=== PATIENT | female | born 1935 | race Caucasian/White ===

== ENCOUNTER 2020-09-29 21:28 | Inpatient (IN) | payer MEDICARE, OTHER ==
[~2020-09-29] VITALS: Ht 154.9 cm; Wt 50.8 kg
--- NOTE | 2020-09-29 22:43 | NUR ---
BETHANY PLACED SUGAR TONG SPLINT.
--- NOTE | 2020-09-29 22:47 | NUR ---
LAB IN ROOM TO COLLECT BLOOD
[2020-09-29 23:05] LABS: BASOPHILS 0.3 % (0-2); EOSINOPHILS 1.1 % (0-7); HEMATOCRIT 36.8 % (36.0-48.0); HEMOGLOBIN 12.3 g/dL (12-16); IMMATURE GRANULOCYTES 0.3 % (0-5); LYMPHOCYTE ABS# 1.95 10x3/uL (1.18-3.74); LYMPHOCYTES 16.3 % (15-50); MCH 32.5 pg (26.0-34.0); MCHC 33.4 g/dL (31.0-37.0); MCV 97.4 fL (80.0-100.0); MEAN PLATELET VOLUME 9.2 fL (7.4-10.4); MONOCYTES 9.8 % (2-11); NEUTROPHIL ABS# 8.61 10x3/uL (1.56-6.13); NEUTROPHILS 72.2 % (40-80); PLATELET COUNT 223 10x3/uL (130-400); RBC 3.78 10x6/uL (4.00-5.40); RDW 11.8 % (11.5-14.5); WBC 11.9 10x3/uL (4.8-10.8)
[2020-09-29 23:15] VITALS: BP 119/47
[2020-09-29 23:15] LABS: ANION GAP 11.7 mmol/L (8-16); CALCIUM 8.4 mg/dL (8.5-10.1); CARBON DIOXIDE 25.8 mmol/L (21.0-32.0); CREATININE - SERUM 1.1 mg/dL (0.6-1.3); POTASSIUM - SERUM 3.5 mmol/L (3.5-5.1)
[2020-09-29 23:16] LABS: APTT 28.8 SECONDS (22.8-39.4); INR 1.13 (0.85-1.17); PROTIME 13.4 SECONDS (11.6-15.0)
[2020-09-29 23:26] LABS: BILIRUBIN NEGATIVE (NEGATIVE); KETONE NEGATIVE (NEGATIVE); NITRITE NEGATIVE (NEGATIVE); UROBILINOGEN NORMAL mg/dL (< 2)
[2020-09-29 23:30] LABS: ALBUMIN 3.3 g/dL (3.4-5.0); BILIRUBIN - TOTAL 0.55 mg/dL (0.2-1.3); PROTEIN - SERUM 6.9 g/dL (6.4-8.2); THYROID STIMULATING HORMONE 1.72 uIU/mL (0.36-3.74)
[2020-09-30] VITALS: BP 117/51
[2020-09-30] MEDS ORDERED: METOPROLOL TART50 MG PO (00:31)
[2020-09-30] MEDS ORDERED: CELEXA40 MG PO (00:34)
[2020-09-30] MEDS ORDERED: OMEPRAZOLE40 MG PO (00:34)
[2020-09-30] MEDS ORDERED: DIOVAN80 MG PO (00:35)
[2020-09-30] MEDS ORDERED: LIPITOR20 MG PO (00:37)
[2020-09-30] MEDS ORDERED: MAG-OX 400 MG400 MG PO (00:38)
[2020-09-30] MEDS ORDERED: OMEGA-3100 MG PO (00:40)
[2020-09-30] MEDS ORDERED: ACIDOPHILUS-PE1 EACH PO (00:40)
[2020-09-30] MEDS ORDERED: VITAMIN D325 MC1 PO (00:40)
[2020-09-30] MEDS ORDERED: CITRACAL + D E1 EACH PO (00:41)
[2020-09-30] MEDS ORDERED: ASCORBIC ACID500 MG PO (00:41)
[2020-09-30 00:42] VITALS: BP 130/57; BMI 21.2
[2020-09-30] MEDS ORDERED: NIASPAN500 MG PO (00:42)
[2020-09-30] MEDS ORDERED: POTASSIUM99 M1 PO (00:42)
[2020-09-30] MEDS ORDERED: SUPER B COMPLE1 EAC1 PO (00:43)
[2020-09-30] MEDS ORDERED: [UNRECOGNIZED DRUG - OTHER] (00:44)
[2020-09-30] MEDS ORDERED: EYE HEALTH COMPLEX (00:45)
--- NOTE | 2020-09-30 01:06 | NUR ---
I have reviewed this patient and I concur with the Shift Assessment completed by the Licensed Practical Nurse today this shift.
[2020-09-30 04:00] VITALS: BP 122/53
[2020-09-30 07:35] LABS: BASOPHILS 0.2 % (0-2); EOSINOPHILS 1.8 % (0-7); HEMATOCRIT 37.7 % (36.0-48.0); HEMOGLOBIN 12.4 g/dL (12-16); IMMATURE GRANULOCYTES 0.1 % (0-5); LYMPHOCYTE ABS# 1.78 10x3/uL (1.18-3.74); LYMPHOCYTES 18.7 % (15-50); MCH 32.5 pg (26.0-34.0); MCHC 32.9 g/dL (31.0-37.0); MCV 98.7 fL (80.0-100.0); MEAN PLATELET VOLUME 9.4 fL (7.4-10.4); MONOCYTES 11.8 % (2-11); NEUTROPHIL ABS# 6.41 10x3/uL (1.56-6.13); NEUTROPHILS 67.4 % (40-80); PLATELET COUNT 198 10x3/uL (130-400); RBC 3.82 10x6/uL (4.00-5.40); RDW 11.9 % (11.5-14.5); WBC 9.5 10x3/uL (4.8-10.8)
[2020-09-30 08:06] LABS: ALBUMIN 3.2 g/dL (3.4-5.0); ANION GAP 14.2 mmol/L (8-16); BILIRUBIN - TOTAL 0.89 mg/dL (0.2-1.3); CALCIUM 8.3 mg/dL (8.5-10.1); CARBON DIOXIDE 24.5 mmol/L (21.0-32.0); MAGNESIUM - SERUM 1.7 mg/dL (1.8-2.4); PHOSPHOROUS 3.3 mg/dL (2.5-4.9); POTASSIUM - SERUM 3.7 mmol/L (3.5-5.1); PROTEIN - SERUM 6.7 g/dL (6.4-8.2)
--- NOTE | 2020-09-30 10:25 | NUR ---
PATIENT AWAKE AND ALERT, WAS ABLE TO EAT BREAKFAST WITHOUT DIFFICULTY WITH ASSISTANCE FROM HER DAUGHTER. PATIENT DENIES ANY PAIN AT THIS TIME. PATIENT ALERT AND ORIENTED X 4. SPLINT IN PLACE WITH GOOD PMS TO RIGHT ARM. NO DISTRESS NOTED. CALL MOTTA IN REACH, SIDE RAILS UP X 2, BED IN LOW POSITION. IV SITE DRY AND INTACT WITH NO S/S OF INFILTRATION. IV SALINE LOCKED AT THIS TIME.
[2020-09-30 13:34] VITALS: Ht 154.9 cm; Wt 50.8 kg
--- NOTE | 2020-09-30 15:21 | NUR ---
PATIENT RESTING QUIETLY AT THIS TIME, RESPIRATIONS EVEN AND UNLABORED. NO DISTRESS NOTED. FAMILY AT BEDSIDE. CALL MOTTA IN REACH, SIDE RAILS UP X 2, BED IN LOW POSITION.
[2020-09-30 15:25] VITALS: BP 148/62
[2020-09-30 18:35] VITALS: BP 140/58
[2020-09-30 20:00] VITALS: BP 137/66
[2020-10-01] VITALS: BP 134/69
[2020-10-01 04:00] VITALS: BP 118/57
--- NOTE | 2020-10-01 04:49 | NUR ---
PATIENT CONTINUED TO BE CONFUSED THIS SHIFT, PAIN WAS MANAGED WITH THE PRESCRIBED PAIN MEDICATION, SHE REFUSED SCD'S, AND REFUSED EXOS THUMB SPIKA SPLINT, SHE IS CURRENTLY RESTING IN BED WITH HER EYES CLOSED.
[2020-10-01 06:14] LABS: BASOPHILS 0.3 % (0-2); EOSINOPHILS 1.5 % (0-7); HEMATOCRIT 38.3 % (36.0-48.0); HEMOGLOBIN 12.6 g/dL (12-16); IMMATURE GRANULOCYTES 0.1 % (0-5); LYMPHOCYTE ABS# 1.97 10x3/uL (1.18-3.74); LYMPHOCYTES 19.9 % (15-50); MCH 32.6 pg (26.0-34.0); MCHC 32.9 g/dL (31.0-37.0); MEAN PLATELET VOLUME 9.8 fL (7.4-10.4); NEUTROPHIL ABS# 6.34 10x3/uL (1.56-6.13); NEUTROPHILS 64.2 % (40-80); PLATELET COUNT 213 10x3/uL (130-400); RBC 3.87 10x6/uL (4.00-5.40); RDW 12.1 % (11.5-14.5); WBC 9.9 10x3/uL (4.8-10.8)
[2020-10-01 06:28] LABS: ANION GAP 12.8 mmol/L (8-16); BILIRUBIN - TOTAL 1.14 mg/dL (0.2-1.3); CALCIUM 8.9 mg/dL (8.5-10.1); CARBON DIOXIDE 27.2 mmol/L (21.0-32.0); CREATININE - SERUM 0.8 mg/dL (0.6-1.3); PHOSPHOROUS 2.9 mg/dL (2.5-4.9); PROTEIN - SERUM 7.2 g/dL (6.4-8.2)
[2020-10-01 06:29] LABS: MAGNESIUM - SERUM 2.4 mg/dL (1.8-2.4)
[2020-10-01 08:50] VITALS: BP 131/57
--- NOTE | 2020-10-01 09:35 | NUR ---
PT STATES PAIN 5/10, MORPHINE GIVEN, GRANDAUGHTER AT BEDSIDE, MEDS GIVEN, PT AOX2-3, PT DOES NOT USE CALL LIGHT, BED ALARM IN PLACE
[2020-10-01 13:10] VITALS: BP 104/47
[2020-10-01] MEDS ORDERED: HYDROCODON-ACE1 EAC7 PO (13:29)
--- NOTE | 2020-10-01 14:44 | MORECARE ---
CASE MANAGEMENT DISCHARGE SUMMARY PATIENT: KAMERON SHAH UNIT: [id number] ADM DATE: 09/29/20 AGE: 85 : 35 SEX: F ROOM/BED: D.2232 AUTHOR: NEETU BENJAMIN PHYSICIAN: REFERRING PHYSICIAN: STEPHEN ACEVEDO MD DATE OF SERVICE: 10/01/20 Case Management Discharge Planning Summary DCP REVIEW SUMMARY ANTICIPATED D/C DATE: EXPECTED LOS : CASE STATUS: DCP Initiated INITIAL REVIEW: 09/29/2020 INITIAL REVIEWER: Fatuma Fagan FINAL DISCHARGE DISPOSITION: : FINAL REVIEWER: FINAL REVIEW DATE: LACE: UPDATED BY: [id number]: Bhavani Gross on 09/30/20 8:43 CT QUESTION: ANSWER Length of Stay (Prior Admit): None Acute Admission: Inpatient Emergency Room visits during previous 6 months: 0 Visits DCP Focus Questions & Answers DCP Screen QUESTION: ANSWER High Risk Factors: : Polypharmacy (greater than 10 meds) DCP Evaluation QUESTION: ANSWER Patient gives permission to discuss discharge plans with: (name, relationship and number) : DAUGHTER Patient's ability to cope with chronic illness : a. Adequate (0-3 ED visits in 6 mos., adequate financial resources, attends scheduled appts.) Patient and/or caregiver agree upon recommended discharge plan? : Yes Family / Caregiver's ability to cope with chronic illness: : a. Adequate (ability to meet patient's medical needs, ensures patient attends medical appts.) Patient's current cognitive status: : *Oriented to person, place, situation, time and present Physical Status: : Partial care dependence Does the patient have the ability to pay for or attain post discharge needs / services? : Yes Functional screen assessment: : New onset in weakness or paralysis Functional screen assessment: : New onset in difficulty in gait, balance, or transfer difficulties Family / Caregiver's ability to cope with chronic illness: : a. Adequate (ability to meet patient's medical needs, ensures patient attends medical appts.) Partial Dependence, assistance required for: : Bathing Is there a likelihood that the patient will require additional services to return to the preadmission environment? : Yes Functional screen comments: : WILL NEED REHAB Living Arrangements: : Home with others Other Equipment comments: : PLATFORM WALKER Results of this evaluation have been discussed with: : Children Patient with capacity for self-care or can be cared for in same environment as prior to hospitalization? : No Living arrangements comments: : LIVES WITH HER DAUGHTER Baseline cognitive status: : *Oriented to person, place, situation, time and present Physical environment modification needed / anticipated for discharge: : Yes Comments: : DC TO INPATIENT REHAB Physical environment referral comments (if applicable): : FAMILY LOOKING INTO A WALK IN SHOWER AND A RAMP Medication Management: : Patient states can read and understand medication labels Planned post hospital services available for patient? : Yes Pharmacy name(s): : [facility] Planned post hospital services covered by insurance plan? : Yes Does Patient have transportation to get home and to follow-up medical appointments when discharged from the hospital? : Yes Would patient like to participate in any Care Coordination programs (if applicable): : Not applicable Does the patient have electricity at home? : Yes Does the patient have running water in their house? : Yes Equipment in use: : Wheelchair Equipment in use: : Walker - Standard Equipment in use: : Bedside Commode Other Equipment comments: : DAUGHTER IS GOING TO ASK ABOUT RAMPS Mental health screen: : No mental health history Psychosocial status: : Unknown identity Abuse/Neglect: : None Resources / Services in place: : None Contact information for resources in use: : TRACEY ( DAUGHTER) [phone] XIN ( GRANDSON) [phone] [facility] Re-evaluation QUESTION: ANSWER Would patient like to participate in any Care Coordination programs (if applicable): : Not applicable PATIENT: KAMERON SHAH ENCOUNTER: [id number] MEDICAL RECORD#: [id number] ADMISSION DATE: 09/29/2020 DISCHARGE DATE: ATTENDING MD: STEPHEN BAE : AGE: 85 MARITAL STATUS: U DC PLAN ID: [id number] FACILITY: [facility] PRINTED ON: 10/01/20 14:44 CT All edits/amendments must be made on the electronic document DICTATION DATE: 10/01/201443 FLOORING PROFESSIONAL: MOSES 10/01/201443 RPT#: [id number] DC DATE: STATUS: ADM IN [facility] [address] [place] [address] END OF REPORT
--- NOTE | 2020-10-01 14:56 | MORECARE ---
CASE MANAGEMENT DISCHARGE SUMMARY PATIENT: KAMERON SHAH UNIT: [id number] ADM DATE: 09/29/20 AGE: 85 : 35 SEX: F ROOM/BED: D.2232 AUTHOR: NEETU BENJAMIN PHYSICIAN: REFERRING PHYSICIAN: STEPHEN ACEVEDO MD DATE OF SERVICE: 10/01/20 Case Management Discharge Planning Summary COMMENTS ENTERED DATE: 10/01/20 14:41 CT COMMENT TYPE: Discharge Planning REVIEWER: Fatuma Fagan CM met with patient & daughter Tracey, to complete initial dc planning assessment. CM educated patient on the CM role and verbal consent given by patient to complete assessment. Patient lives at home with her daughter where she is pretty independent with her care. Her daughter stated that they were going to look into a ramp at her home and turning the bathtub to a walk in shower. At discharge patient plans to return home and feels this is a safe discharge. CM discussed availability of home health, rehab services, and medical equipment. She is agreeable to inpatient rehab and feels like it will benefit her before she goes home. She has a walker x 2, a bsc, and a wheelchair at home. She is a patient of Dr Uriarte and uses the [facility] on [address]. TARSHA signed and IMM served and signed. Patient will be discharging down there today. Patient denied known discharge needs at this time. CM will continue to follow and will assist as needed with dc plans/needs. DCP REVIEW SUMMARY ANTICIPATED D/C DATE: EXPECTED LOS : CASE STATUS: DCP Initiated INITIAL REVIEW: 09/29/2020 INITIAL REVIEWER: Fatuma Fagan FINAL DISCHARGE DISPOSITION: : FINAL REVIEWER: FINAL REVIEW DATE: LACE: UPDATED BY: [id number]: Bhavani Gross on 09/30/20 8:43 CT QUESTION: ANSWER Length of Stay (Prior Admit): None Acute Admission: Inpatient Emergency Room visits during previous 6 months: 0 Visits DCP Focus Questions & Answers DCP Screen QUESTION: ANSWER High Risk Factors: : Polypharmacy (greater than 10 meds) DCP Evaluation QUESTION: ANSWER Patient gives permission to discuss discharge plans with: (name, relationship and number) : DAUGHTER Patient's ability to cope with chronic illness : a. Adequate (0-3 ED visits in 6 mos., adequate financial resources, attends scheduled appts.) Patient and/or caregiver agree upon recommended discharge plan? : Yes Family / Caregiver's ability to cope with chronic illness: : a. Adequate (ability to meet patient's medical needs, ensures patient attends medical appts.) Patient's current cognitive status: : *Oriented to person, place, situation, time and present Physical Status: : Partial care dependence Does the patient have the ability to pay for or attain post discharge needs / services? : Yes Functional screen assessment: : New onset in weakness or paralysis Functional screen assessment: : New onset in difficulty in gait, balance, or transfer difficulties Family / Caregiver's ability to cope with chronic illness: : a. Adequate (ability to meet patient's medical needs, ensures patient attends medical appts.) Partial Dependence, assistance required for: : Bathing Is there a likelihood that the patient will require additional services to return to the preadmission environment? : Yes Functional screen comments: : WILL NEED REHAB Living Arrangements: : Home with others Other Equipment comments: : PLATFORM WALKER Results of this evaluation have been discussed with: : Children Patient with capacity for self-care or can be cared for in same environment as prior to hospitalization? : No Living arrangements comments: : LIVES WITH HER DAUGHTER Baseline cognitive status: : *Oriented to person, place, situation, time and present Physical environment modification needed / anticipated for discharge: : Yes Comments: : DC TO INPATIENT REHAB Physical environment referral comments (if applicable): : FAMILY LOOKING INTO A WALK IN SHOWER AND A RAMP Medication Management: : Patient states can read and understand medication labels Planned post hospital services available for patient? : Yes Pharmacy name(s): : [facility] Planned post hospital services covered by insurance plan? : Yes Does Patient have transportation to get home and to follow-up medical appointments when discharged from the hospital? : Yes Would patient like to participate in any Care Coordination programs (if applicable): : Not applicable Does the patient have electricity at home? : Yes Does the patient have running water in their house? : Yes Equipment in use: : Wheelchair Equipment in use: : Walker - Standard Equipment in use: : Bedside Commode Other Equipment comments: : DAUGHTER IS GOING TO ASK ABOUT RAMPS Mental health screen: : No mental health history Psychosocial status: : Unknown identity Abuse/Neglect: : None Resources / Services in place: : None Contact information for resources in use: : TRACEY ( DAUGHTER) [phone] XIN ( GRANDSON) [phone] DCP Re-evaluation QUESTION: ANSWER Would patient like to participate in any Care Coordination programs (if applicable): : Not applicable PATIENT: KAMERON SHAH ENCOUNTER: [id number] MEDICAL RECORD#: [id number] ADMISSION DATE: 09/29/2020 DISCHARGE DATE: ATTENDING MD: STEHPEN BAE : AGE: 85 MARITAL STATUS: U DC PLAN ID: [id number] FACILITY: [facility] PRINTED ON: 10/01/20 14:56 CT All edits/amendments must be made on the electronic document DICTATION DATE: 10/01/201455 RESTAURANT KITCHEN MANAGER: MOSES 10/01/201455 RPT#: [id number] DC DATE: STATUS: ADM IN [facility] [address] [place] [address] END OF REPORT
[2020-10-01 17:09] VITALS: BP 104/58
--- NOTE | 2020-10-01 17:23 | NUR ---
CALLED [facility]PATIENT REHAB TO GIVE REPORT
--- NOTE | 2020-10-01 18:10 | NUR ---
DISCHARGE INSTRUCTOINS REVIEWED AND SIGNED WITH PT, ALL QUESTIONS ANSWERED, IV REMOVED, TIP INTACT, PT LEFT VIA WHEELCHAIR WITH STAFF TO REHAB, NO DISTRESS NOTED
--- NOTE | 2020-10-01 19:10 | MORECARE ---
CASE MANAGEMENT DISCHARGE SUMMARY PATIENT: KAMERON SHAH UNIT: [id number] ADM DATE: 09/29/20 AGE: 85 : 35 SEX: F ROOM/BED: D.2232 AUTHOR: NEETU BENJAMIN PHYSICIAN: REFERRING PHYSICIAN: STEPHEN ACEVEDO MD DATE OF SERVICE: 10/01/20 Case Management Discharge Planning Summary COMMENTS ENTERED DATE: 10/01/20 14:41 CT COMMENT TYPE: Discharge Planning REVIEWER: Fatuma Fagan CM met with patient & daughter Tracey, to complete initial dc planning assessment. CM educated patient on the CM role and verbal consent given by patient to complete assessment. Patient lives at home with her daughter where she is pretty independent with her care. Her daughter stated that they were going to look into a ramp at her home and turning the bathtub to a walk in shower. At discharge patient plans to return home and feels this is a safe discharge. CM discussed availability of home health, rehab services, and medical equipment. She is agreeable to inpatient rehab and feels like it will benefit her before she goes home. She has a walker x 2, a bsc, and a wheelchair at home. She is a patient of Dr Uriarte and uses the [facility] on [address]. TARSHA signed and IMM served and signed. Patient will be discharging down there today. Patient denied known discharge needs at this time. CM will continue to follow and will assist as needed with dc plans/needs. DCP REVIEW SUMMARY ANTICIPATED D/C DATE: EXPECTED LOS : CASE STATUS: DCP Initiated INITIAL REVIEW: 09/29/2020 INITIAL REVIEWER: Fatuma Fagan FINAL DISCHARGE DISPOSITION: : FINAL REVIEWER: FINAL REVIEW DATE: LACE: UPDATED BY: [id number]: Bhavani Gross on 09/30/20 8:43 CT QUESTION: ANSWER Length of Stay (Prior Admit): None Acute Admission: Inpatient Emergency Room visits during previous 6 months: 0 Visits DCP Focus Questions & Answers DCP Screen QUESTION: ANSWER High Risk Factors: : Polypharmacy (greater than 10 meds) DCP Evaluation QUESTION: ANSWER Patient gives permission to discuss discharge plans with: (name, relationship and number) : DAUGHTER Patient's ability to cope with chronic illness : a. Adequate (0-3 ED visits in 6 mos., adequate financial resources, attends scheduled appts.) Patient and/or caregiver agree upon recommended discharge plan? : Yes Family / Caregiver's ability to cope with chronic illness: : a. Adequate (ability to meet patient's medical needs, ensures patient attends medical appts.) Patient's current cognitive status: : *Oriented to person, place, situation, time and present Physical Status: : Partial care dependence Does the patient have the ability to pay for or attain post discharge needs / services? : Yes Functional screen assessment: : New onset in weakness or paralysis Functional screen assessment: : New onset in difficulty in gait, balance, or transfer difficulties Family / Caregiver's ability to cope with chronic illness: : a. Adequate (ability to meet patient's medical needs, ensures patient attends medical appts.) Partial Dependence, assistance required for: : Bathing Is there a likelihood that the patient will require additional services to return to the preadmission environment? : Yes Functional screen comments: : WILL NEED REHAB Living Arrangements: : Home with others Other Equipment comments: : PLATFORM WALKER Results of this evaluation have been discussed with: : Children Patient with capacity for self-care or can be cared for in same environment as prior to hospitalization? : No Living arrangements comments: : LIVES WITH HER DAUGHTER Baseline cognitive status: : *Oriented to person, place, situation, time and present Physical environment modification needed / anticipated for discharge: : Yes Comments: : DC TO INPATIENT REHAB Physical environment referral comments (if applicable): : FAMILY LOOKING INTO A WALK IN SHOWER AND A RAMP Medication Management: : Patient states can read and understand medication labels Planned post hospital services available for patient? : Yes Pharmacy name(s): : [facility] Planned post hospital services covered by insurance plan? : Yes Does Patient have transportation to get home and to follow-up medical appointments when discharged from the hospital? : Yes Would patient like to participate in any Care Coordination programs (if applicable): : Not applicable Does the patient have electricity at home? : Yes Does the patient have running water in their house? : Yes Equipment in use: : Wheelchair Equipment in use: : Walker - Standard Equipment in use: : Bedside Commode Other Equipment comments: : DAUGHTER IS GOING TO ASK ABOUT RAMPS Mental health screen: : No mental health history Psychosocial status: : Unknown identity Abuse/Neglect: : None Resources / Services in place: : None Contact information for resources in use: : TRACEY ( DAUGHTER) [phone] XIN ( GRANDSON) [phone] DCP Re-evaluation QUESTION: ANSWER Would patient like to participate in any Care Coordination programs (if applicable): : Not applicable PATIENT: KAMERON SHAH ENCOUNTER: [id number] MEDICAL RECORD#: [id number] ADMISSION DATE: 09/29/2020 DISCHARGE DATE: 10/01/2020 ATTENDING MD: STEPHEN BAE : AGE: 85 MARITAL STATUS: U DC PLAN ID: [id number] FACILITY: [facility] PRINTED ON: 10/01/20 19:10 CT All edits/amendments must be made on the electronic document DICTATION DATE: 10/01/201909 STRETCHER DRIER OPERATOR: MOSES 10/01/201909 RPT#: [id number] DC DATE:10/01/20 STATUS: DIS IN [facility] [address] [place] [address] END OF REPORT
--- NOTE | 2020-10-02 07:42 | MORECARE ---
CASE MANAGEMENT DISCHARGE SUMMARY PATIENT: KAMERON SHAH UNIT: [id number] ADM DATE: 09/29/20 AGE: 85 : 35 SEX: F ROOM/BED: D.2232 AUTHOR: NEETU BENJAMIN PHYSICIAN: REFERRING PHYSICIAN: STEPHEN ACEVEDO MD DATE OF SERVICE: 10/02/20 Case Management Discharge Planning Summary COMMENTS ENTERED DATE: 10/01/20 14:41 CT COMMENT TYPE: Discharge Planning REVIEWER: Fatuma Fagan CM met with patient & daughter Tracey, to complete initial dc planning assessment. CM educated patient on the CM role and verbal consent given by patient to complete assessment. Patient lives at home with her daughter where she is pretty independent with her care. Her daughter stated that they were going to look into a ramp at her home and turning the bathtub to a walk in shower. At discharge patient plans to return home and feels this is a safe discharge. CM discussed availability of home health, rehab services, and medical equipment. She is agreeable to inpatient rehab and feels like it will benefit her before she goes home. She has a walker x 2, a bsc, and a wheelchair at home. She is a patient of Dr Uriarte and uses the [facility] on [address]. TARSHA signed and IMM served and signed. Patient will be discharging down there today. Patient denied known discharge needs at this time. CM will continue to follow and will assist as needed with dc plans/needs. DCP REVIEW SUMMARY ANTICIPATED D/C DATE: EXPECTED LOS : CASE STATUS: DCP Initiated INITIAL REVIEW: 09/29/2020 INITIAL REVIEWER: Fatuma Fagan FINAL DISCHARGE DISPOSITION: : FINAL REVIEWER: FINAL REVIEW DATE: LACE: UPDATED BY: [id number]: Bhavani Gross on 09/30/20 8:43 CT QUESTION: ANSWER Length of Stay (Prior Admit): None Acute Admission: Inpatient Emergency Room visits during previous 6 months: 0 Visits DCP Focus Questions & Answers DCP Screen QUESTION: ANSWER High Risk Factors: : Polypharmacy (greater than 10 meds) DCP Evaluation QUESTION: ANSWER Patient gives permission to discuss discharge plans with: (name, relationship and number) : DAUGHTER Patient's ability to cope with chronic illness : a. Adequate (0-3 ED visits in 6 mos., adequate financial resources, attends scheduled appts.) Patient and/or caregiver agree upon recommended discharge plan? : Yes Family / Caregiver's ability to cope with chronic illness: : a. Adequate (ability to meet patient's medical needs, ensures patient attends medical appts.) Patient's current cognitive status: : *Oriented to person, place, situation, time and present Physical Status: : Partial care dependence Does the patient have the ability to pay for or attain post discharge needs / services? : Yes Functional screen assessment: : New onset in weakness or paralysis Functional screen assessment: : New onset in difficulty in gait, balance, or transfer difficulties Family / Caregiver's ability to cope with chronic illness: : a. Adequate (ability to meet patient's medical needs, ensures patient attends medical appts.) Partial Dependence, assistance required for: : Bathing Is there a likelihood that the patient will require additional services to return to the preadmission environment? : Yes Functional screen comments: : WILL NEED REHAB Living Arrangements: : Home with others Other Equipment comments: : PLATFORM WALKER Results of this evaluation have been discussed with: : Children Patient with capacity for self-care or can be cared for in same environment as prior to hospitalization? : No Living arrangements comments: : LIVES WITH HER DAUGHTER Baseline cognitive status: : *Oriented to person, place, situation, time and present Physical environment modification needed / anticipated for discharge: : Yes Comments: : DC TO INPATIENT REHAB Physical environment referral comments (if applicable): : FAMILY LOOKING INTO A WALK IN SHOWER AND A RAMP Medication Management: : Patient states can read and understand medication labels Planned post hospital services available for patient? : Yes Pharmacy name(s): : [facility] Planned post hospital services covered by insurance plan? : Yes Does Patient have transportation to get home and to follow-up medical appointments when discharged from the hospital? : Yes Would patient like to participate in any Care Coordination programs (if applicable): : Not applicable Does the patient have electricity at home? : Yes Does the patient have running water in their house? : Yes Equipment in use: : Wheelchair Equipment in use: : Walker - Standard Equipment in use: : Bedside Commode Other Equipment comments: : DAUGHTER IS GOING TO ASK ABOUT RAMPS Mental health screen: : No mental health history Psychosocial status: : Unknown identity Abuse/Neglect: : None Resources / Services in place: : None Contact information for resources in use: : TRACEY ( DAUGHTER) [phone] XIN ( GRANDSON) [phone] DCP Re-evaluation QUESTION: ANSWER Would patient like to participate in any Care Coordination programs (if applicable): : Not applicable PATIENT: KAMERON SHAH ENCOUNTER: [id number] MEDICAL RECORD#: [id number] ADMISSION DATE: 09/29/2020 DISCHARGE DATE: 10/01/2020 ATTENDING MD: STEPHEN BAE : AGE: 85 MARITAL STATUS: U DC PLAN ID: [id number] FACILITY: [facility] PRINTED ON: 10/02/20 7:42 CT All edits/amendments must be made on the electronic document DICTATION DATE: 10/02/20741 TICKET COLLECTOR OR USHER: MOSES 10/02/20741 RPT#: [id number] DC DATE:10/01/20 STATUS: DIS IN [facility] [address] [place] [address] END OF REPORT
== END 2020-10-01 18:30 | DRG 536 ==
LOC: D.ER 21:28 → D.MS 23:23
PROVIDERS: Family Medicine; ADMIT Family Medicine; ATTEND Family Medicine
DX: S32.501A Unspecified fracture of right pubis, initial encounter for closed fracture (principal); S52.511A Displaced fracture of right radial styloid process, initial encounter for closed fracture; W19.XXXA Unspecified fall, initial encounter; I10 Essential (primary) hypertension; E78.5 Hyperlipidemia, unspecified

== ENCOUNTER 2020-10-01 17:05 | Inpatient (IN) | payer MEDICARE, OTHER ==
[~2020-10-01] VITALS: Ht 154.9 cm; Wt 52.6 kg
[~2020-10-01 17:05] MED LIST: ACIDOPHILUS-PE1 EACH PO; ASCORBIC ACID500 MG PO; CELEXA40 MG PO; CITRACAL + D E1 EACH PO; DIOVAN80 MG PO; EYE HEALTH COMPLEX; HYDROCODON-ACE1 EAC7 PO; LIPITOR20 MG PO; MAG-OX 400 MG400 MG PO; METOPROLOL TART50 MG PO; NIASPAN500 MG PO; OMEGA-3100 MG PO; OMEPRAZOLE40 MG PO; POTASSIUM99 M1 PO; SUPER B COMPLE1 EAC1 PO; VITAMIN D325 MC1 PO; [UNRECOGNIZED DRUG - OTHER]
--- NOTE | 2020-10-01 20:24 | NUR ---
ADMIT TO PHYSICAL REHAB AND SERVICES OF DR PRITCHETT. ALERT AND SOME CONFUSION, DISORIENTED TO TIME PLACE TIME AND SITUATION. RESPIRAITONS UNLABORED. DX FRACTURED RIGHT ARM AND FRACTURED PELVIS. EDUCATION DONE ON NON WEIGHT-BEARING. REFUSES TO WEAR SPLING. CAN RECALL FALLING EPISODE THAT RESULTED IN INJURIES. NO ACUTE DISTRESS NOTED.
[2020-10-01 20:30] VITALS: BP 101/46; BMI 21.9
[2020-10-01 21:22] VITALS: BP 101/46
--- NOTE | 2020-10-02 02:27 | NUR ---
HAS MADE TWO ATTEMPTS NOW TO GET OUT OF BED AND SHE STATES SHE IS "TRYING TO GO TO HER BED." EXPLAINED TO PATIENT SHE IS IN HER BED AT HOSPITAL AND REMINDED TO NOT GET UP OUT OF BED WITHOUT CALLING FOR ASSISTANCE. SHE VOICES UNDERSTANDING. WILL MONITOR.
--- NOTE | 2020-10-02 05:26 | NUR ---
CONTINUES TO BE CONFUSED. CONTINUED TO GET OUT OF BED WITHOUT CALLING. ASSISTED TO RECLINER AND IS NOW SITTING AT NURSES STATION.
[2020-10-02 07:49] LABS: BASOPHILS 0.2 % (0-2); EOSINOPHILS 0.9 % (0-7); HEMATOCRIT 34.9 % (36.0-48.0); HEMOGLOBIN 11.8 g/dL (12-16); IMMATURE GRANULOCYTES 0.2 % (0-5); LYMPHOCYTE ABS# 1.86 10x3/uL (1.18-3.74); LYMPHOCYTES 19.3 % (15-50); MCH 32.7 pg (26.0-34.0); MCHC 33.8 g/dL (31.0-37.0); MEAN PLATELET VOLUME 9.6 fL (7.4-10.4); NEUTROPHILS 67.4 % (40-80); PLATELET COUNT 211 10x3/uL (130-400); RBC 3.61 10x6/uL (4.00-5.40); RDW 11.7 % (11.5-14.5); WBC 9.7 10x3/uL (4.8-10.8)
[2020-10-02 07:56] LABS: MCV 96.7 fL (80.0-100.0)
[2020-10-02 07:59] LABS: ANION GAP 13.1 mmol/L (8-16); CALCIUM 8.8 mg/dL (8.5-10.1); CARBON DIOXIDE 25.6 mmol/L (21.0-32.0); CREATININE - SERUM 0.9 mg/dL (0.6-1.3); POTASSIUM - SERUM 3.7 mmol/L (3.5-5.1)
[2020-10-02 11:25] VITALS: BP 132/40
[2020-10-02 14:45] VITALS: Ht 154.9 cm; Wt 52.6 kg
--- NOTE | 2020-10-02 16:52 | NUR ---
care team meeting: patient is new to unit and will be ra at next meting. will continue to follow with patient.
--- NOTE | 2020-10-02 19:06 | NUR ---
BEDSIDE REPORT COMPLETE. RECEIVED PT LYING IN BED. ALERT AND ORIENTED X3. DENIES ANY NEEDS OR PAIN. RIGHT ARM SPLINT INTACT. FAMILY AT BEDSIDE. ROGELIO AND BED ALARM ON. NO IV OR OXYGEN NOTED. CALL LIGHT AND WATER WITHIN REACH. FALL PRECAUTIONS IN PLACE. CPOC
[2020-10-02 21:27] VITALS: BP 149/52
--- NOTE | 2020-10-03 00:08 | NUR ---
PT LYING IN BED EYES CLOSED RESTING. RR EVEN AND UNLABORED. FAMILY AT BEDSIDE. CALL LIGHT WITHIN REACH. ROGELIO ALARM ON
--- NOTE | 2020-10-03 03:22 | NUR ---
PT LYING IN BED ON RIGHT SIDE EYES CLOSED RESTING. RR EVEN AND UNLABORED. CALL LIGHT WITHIN REACH.
--- NOTE | 2020-10-03 07:32 | NUR ---
PT RESTING IN BED WITH EYES OPEN CALL LIGHT IN REACH NO PROBLEMS WILL MONITER
[2020-10-03 08:10] VITALS: BP 131/57
--- NOTE | 2020-10-03 16:16 | NUR ---
SPOKE WITH PATIENTS GRANDSON REGARDING DISCHARGE PLANS, HE IS TRYING TO GET POA OF HIS MOTHER WHICH IS PATIENT DAUGHTER AND HE STATES THAT SHE HAS POA OVER THE PATIENT. AT DISCHARGE HE WOULD LIKE HIS GRANDMOTHER TO DISCHARGE TO A SKILLED FACILITY FOR REHAB AND THEN POSSIBLE CARE HOME CARE. HE HAS A LIST OF FACILITIES THAT HE IS GOING TO VISIT FOR HIS GRANDMOTHER. TOLD HIM ABOUT THE CARE TEAM MEETINGS ON WEDNESDAY AND HE WOULD LIKE TO ATTEND. WILL CONTINUE TO FOLLOW WITH PATIENT.
--- NOTE | 2020-10-03 18:40 | NUR ---
PT RESTING IN BED WITH EYES OPEN CALL LIGHT IN REACH WILL MONITER
--- NOTE | 2020-10-03 18:50 | NUR ---
BEDSIDE REPORT COMPLETE. RECEIVED PT LYING IN BED AWAKE. ALERT AND ORIENTED X3. DENIES ANY NEEDS OR PAIN. NO DISTRESS NOTED. RIGHT WRIST SPLINT INTACT. CALL LIGHT WITHIN REACH. FALL PRECAUTIONS IN PLACE. CPOC
[2020-10-03 19:54] VITALS: BP 138/55
--- NOTE | 2020-10-04 06:40 | NUR ---
PT LYING IN BED RESTING. NO DISTRESS NOTED. CALL LIGHT WITHIN REACH. ROGELIO ALARM ON
[2020-10-04 07:16] LABS: ANION GAP 12.8 mmol/L (8-16); CALCIUM 8.7 mg/dL (8.5-10.1); CARBON DIOXIDE 26.1 mmol/L (21.0-32.0); POTASSIUM - SERUM 3.9 mmol/L (3.5-5.1)
[2020-10-04 07:18] LABS: BASOPHILS 0.3 % (0-2); EOSINOPHILS 3.3 % (0-7); HEMATOCRIT 35.4 % (36.0-48.0); HEMOGLOBIN 11.8 g/dL (12-16); IMMATURE GRANULOCYTES 0.3 % (0-5); LYMPHOCYTE ABS# 2.75 10x3/uL (1.18-3.74); LYMPHOCYTES 29.9 % (15-50); MCH 32.3 pg (26.0-34.0); MCHC 33.3 g/dL (31.0-37.0); MEAN PLATELET VOLUME 9.8 fL (7.4-10.4); MONOCYTES 11.9 % (2-11); NEUTROPHILS 54.3 % (40-80); RBC 3.65 10x6/uL (4.00-5.40); RDW 11.9 % (11.5-14.5); WBC 9.2 10x3/uL (4.8-10.8)
[2020-10-04 07:29] LABS: PLATELET COUNT 303 10x3/uL (130-400)
[2020-10-04 08:00] VITALS: BP 175/74
--- NOTE | 2020-10-04 08:30 | NUR ---
SITTING UP IN BED FOR BREAKFAST. DENIES NEEDS.
--- NOTE | 2020-10-04 19:30 | NUR ---
AWAKE AND ALERT. RESTING IN BED AFTER GOING TO BATHROOM. RESPIRAITONS UNLABORED. CONFUSED AT TIMES. NO ACUTE DISTRESS NOTED. CALL LIGHT IN REACH.
[2020-10-04 20:18] VITALS: BP 147/61
--- NOTE | 2020-10-05 05:13 | NUR ---
QUIET HOURS. UP TO BATHROOM SEVERAL TIMES. NOW SLEEPING WITH NO DISTRESS NOTED.
--- NOTE | 2020-10-05 08:00 | NUR ---
SHIFT ASSMT COMPLETED.ASSISTED TO BATHROOM AND UP TO WC.CL IN REACH.BREAKFAST GIVEN.
[2020-10-05 09:32] VITALS: BP 149/60
--- NOTE | 2020-10-05 12:00 | NUR ---
SITTING UP IN WC EATING LUNCH.
[2020-10-05 19:12] VITALS: BP 132/60
--- NOTE | 2020-10-05 19:20 | NUR ---
AWAKE AND ALERT. ASSISTED TO BATHROOM. C/O PAIN AND TINGLING IN RIGHT HAND AND THUMB. SPLINT IN PLACE BUT IS NOT TOO TIGHT. HAND WARM AND RADIAL PULSE POSITIVE. RESPIRATIONS UNLABORED.
--- NOTE | 2020-10-06 05:20 | NUR ---
QUIET HOURS. NO ACUTE CHANGES IN CONDITION THIS SHIFT. RESTING IN BED WITH NO DISTRESS NOTED.
[2020-10-06 08:00] VITALS: BP 139/57
--- NOTE | 2020-10-06 08:00 | NUR ---
SHIFT ASSMT COMPLETED.
--- NOTE | 2020-10-06 12:00 | NUR ---
UP OOB FOR LUNCH.
[2020-10-06 19:00] VITALS: BP 139/48
--- NOTE | 2020-10-06 19:36 | NUR ---
AWAKE AND ALERT WITH NOTED CONFUSION. DISORIENTED TO SITUATION AND TIME. RESPIRATIONS UNLABORED. SPLINT INTACT TO RIGHT ARM. NO ACUTE DISTRESS NOTED.
--- NOTE | 2020-10-07 05:26 | NUR ---
RESTING IN BED. RESPIRATIONS UNLABORED. C/O PAIN IN RIGHT HIP AREA. WILL MEDICATED WITH PAIN MEDICATION. SEE MAR. CALL LIGHT IN REACH.
[2020-10-07 07:05] LABS: BASOPHILS 0.4 % (0-2); EOSINOPHILS 2.3 % (0-7); HEMOGLOBIN 11.6 g/dL (12-16); IMMATURE GRANULOCYTES 0.2 % (0-5); LYMPHOCYTE ABS# 2.15 10x3/uL (1.18-3.74); LYMPHOCYTES 22.7 % (15-50); MCHC 33.1 g/dL (31.0-37.0); MCV 96.7 fL (80.0-100.0); MEAN PLATELET VOLUME 9.2 fL (7.4-10.4); MONOCYTES 9.6 % (2-11); NEUTROPHIL ABS# 6.13 10x3/uL (1.56-6.13); NEUTROPHILS 64.8 % (40-80); PLATELET COUNT 331 10x3/uL (130-400); RBC 3.62 10x6/uL (4.00-5.40); WBC 9.5 10x3/uL (4.8-10.8)
[2020-10-07 07:21] LABS: ANION GAP 12.9 mmol/L (8-16); CALCIUM 8.9 mg/dL (8.5-10.1); CARBON DIOXIDE 27.4 mmol/L (21.0-32.0); POTASSIUM - SERUM 4.3 mmol/L (3.5-5.1)
[2020-10-07 08:09] VITALS: BP 150/62
--- NOTE | 2020-10-07 13:05 | NUR ---
NUTRITION FOLLOW UP: COMMENTS: Patient out of room during visit this AM and no family in the room. Patient ate 50% of breakfast this morning. Patient with no complaints per MD note this morning. Added Ensure with meals due to low PO intake. DIET: Regular Diet SUPPLEMENT: Ensure with Meals PO INTAKE: 40% avg for last 10 meals WEIGHT: 09/30-112 lbs; 10/02-116 lbs SKIN: No PU or Chronic Wounds BM: x 1 on 10/06 SIG MEDS: KGluconate, Niacin, MVI, MagOx, Fish Oil, Vit D, OSCAL, Lipitor, Protonix, Probiotic SIG LABS: Na-134(L) RECOMMENDATIONS: -Continue Regular Diet -Continue Ensure with meals as tolerated -Encourage PO intake -Assitance with meals if needed RD to follow up within 7 days
--- NOTE | 2020-10-07 19:33 | NUR ---
PT IN BED WATCHING TV, TOILETED, NO OTHER NEEDS NOTED, FLUIDS/CL WITHIN REACH
[2020-10-07 21:44] VITALS: BP 149/56
--- NOTE | 2020-10-08 07:23 | NUR ---
PT RESTING IN BED WITH EYES OPEN CALL LIGHT IN REACH WILL MONITER
[2020-10-08 08:00] VITALS: BP 155/65
--- NOTE | 2020-10-08 18:35 | NUR ---
PT RESTING IN BED WITH EYES OPEN CALL LIGHT IN REACH NO PROBLEMS WILL MONITER
[2020-10-08 19:00] VITALS: BP 138/55
--- NOTE | 2020-10-09 01:39 | NUR ---
PT RESTING WITH EYES CLOSED. RESPIRATIONS EVEN AND UNLABORED. HER BED ALARM IS ON, BED IS LOW AND CALL LIGHT IS WITHIN REACH.
[2020-10-09 07:54] VITALS: BP 145/49
--- NOTE | 2020-10-09 08:54 | NUR ---
PATIENT SITTING UP AT BEDSIDE TO EAT BREAKFAST. ALERT/ORIENT. CHAIR ALARM ON. CALL LIGHT WITHIN REACH. VOICES NO NEEDS. WILL CONTINUE WITH PLAN OF CARE
--- NOTE | 2020-10-09 13:00 | NUR ---
I have reviewed this patient and I concur with the Shift Assessment completed by the Licensed Practical Nurse today this shift.
--- NOTE | 2020-10-09 15:31 | NUR ---
PATIENT HELPED TO BATHROOM. MODERATE ASST OF ONE PERSON FROM BED TO WHEELCHAIR
--- NOTE | 2020-10-09 16:30 | NUR ---
CARE TEAM MEETING: PATIENT IS DOING WELL IN THERAPY. HER DAUGHTER ATTENDED THE MEETING. SHE WOULD LIKE A REFERRAL TO THE [facility] FOR MORE IN PATIENT THERAPY. WILL MAKE THE REFERRAL FOR POSSIBLE ADMISSION. WILL CONTINUE TO FOLLOW WITH PATIENT.
[2020-10-09 21:29] VITALS: BP 149/62
--- NOTE | 2020-10-10 02:40 | NUR ---
PT YELLING FOR HELP. WENT INTO HER ROOM AND HER CALL LIGHT HAD FALLEN ON THE FLOOR. SHE STATED SHE NEEDED TO PEE. SHE STARTED VOIDING BEFORE WE WERE ABLE TO GET HER IN THE WHEELCHAIR. SHE WAS VERY STIFF AND HAD TROUBLE TRANSFERRING FROM THE BED TO WHEELCHAIR DUE TO PAIN TO HER LOWER BACK. ASSISTED TO RESTROOM WHERE SHE VOIDED AND THEN ASSISTED BACK TO BED. COMPLETE LINEN CHANGE COMPLETED. NORCO GIVEN PER PRN ORDER. HER BED IS LOW, BED ALARM ON AND CALL LIGHT IS WITHIN REACH. FRESH ICE WATER GIVEN. SHE DENIES FURTHER NEEDS.
[2020-10-10 07:49] VITALS: BP 164/86
--- NOTE | 2020-10-10 08:13 | NUR ---
SHE IS WORKING WITH OT. PRN FOR PAIN GIVEN. SHE TOOK HER MEDICATIONS WITHOUT ANY PROBLEMS. SHE HAS A BRUISE ON HER RIGHT HIP, A BRACE TO HER RIGHT WRIST.
--- NOTE | 2020-10-10 19:00 | RHP ---
PATIENT: KAMERON SHAH MEDICAL RECORD: [id number] ACCOUNT: [id number] LOCATION:[facility] [id number] : 35 ADMISSION DATE: 10/01/20 REHABILITATION HISTORY AND PHYSICAL EXAMINATION POST ADMISSION PHYSICIAN EXAMINATION POST ADMISSION PHYSICAL EXAMINATION AND HISTORY AND PHYSICAL DATE OF ADMISSION: 10/01/2020. ADMITTING DIAGNOSIS: Pubic ramus fracture. HISTORY OF PRESENT ILLNESS: The patient is an 85-year-old female patient who fell backwards landing on her hip and her right arm while walking up some steps on 09/29/2020. She denied loss of consciousness. She was admitted to ortho, Dr. Reynoso for pain control. She reported no mobility issues prior to this incident. The patient had an orthopedic surgery consult. It is nonoperative treatment for a right distal radial fracture, which will need a thumb spica splint and a pubic ramus fracture, which she does have to use with a platform walker. She will need to be followed by ortho after discharge. Prior to that, she lived at home with her daughter and she was pretty independent with her care. Daughter stated that she was going to look into a ramp at her home and turning the bathtub to a walk-in shower. At discharge, she plans to return home. She is a patient of Dr. Miller. She is currently weightbearing as tolerated on lower extremity, weightbearing as tolerated for elbow and use of a platform walker. She requires constant cueing not to use her right upper extremity. She is right-hand dominant. She has been working on the thumb spica splint. The thumb space is too small to get the splint positioned exactly where it needs to be. They are working on this at this time. She is mid to mod assist for ADLs, mod to max assist with ambulation. During her rehabilitation stay, we will continue to monitor closely for lab values or cognition, medication adjustments, pain control, decreased activity tolerance, decreased strength, balance deficits and gait disturbance and impaired mobility. She has some dyspnea on exertion. She is a high fall risk and self-care deficits. These are all barriers to her discharge home. Comorbidities include confusion, decreased mobility, falls, hyperlipidemia, hypertension, safety problems, and osteoarthritis. PAST MEDICAL HISTORY: Significant for hyperlipidemia. She has got a history of some musculoskeletal pain. PAST SURGICAL HISTORY: Includes gallbladder surgery, , appendectomy. ALLERGIES: No known drug allergies. MEDICATIONS: Niaspan 500 mg daily, Mag-Ox 200 mg daily, omega-3 one cap daily, beta carotene daily, valsartan 80 mg daily, potassium 99 mg daily. She is on a vitamin Stresstabs. She is on citalopram 40 mg daily, vitamin D 1000 units daily. She is on atorvastatin 20 mg daily, ascorbic acid 1000 mg daily, Protonix 40 mg daily, lactobacillus, Lopressor 100 mg b.i.d., and [place] 5/325 for pain. HABITS: No alcohol or tobacco use. FAMILY HISTORY: Noncontributory. HISTORY AND PHYSICAL [id number] POSTLEWATE,KAMERON SOCIAL HISTORY: The patient wants to return back home and get back to her prior level of functioning. REVIEW OF SYSTEMS: GENERAL: Does complain of weakness and fatigue. HEENT: Denies cold, cough, or congestion. CARDIOVASCULAR: Denies any chest pain. OBJECTIVE: VITAL SIGNS: Stable, afebrile. GENERAL: Elderly female in no acute distress. Normal exam. HEENT: Normocephalic and atraumatic. Mucosa moist. NECK: Supple. No lymphadenopathy. LUNGS: Clear in upper rubio. No wheezes or rales. HEART: Regular rate and rhythm. No murmurs, rubs, or gallops. ABDOMEN: Soft, benign, nondistended. Positive bowel sounds times 4. EXTREMITIES: She does have her hand in a soft Velcro brace at this time. NEUROLOGIC: She is intact, minimally, but she does have some diffuse weakness. Her white count is 9.7, H and H of 12 and 35 and platelet count is noted to be 211. Sodium 133, potassium 3.7, BUN and creatinine of 16 and 0.9 and blood sugar is noted to be 115. ASSESSMENT: This is an 85-year-old female patient admitted to rehab with a working diagnosis of a pubic ramus fracture along with a distal radius fracture. The patient has potential to make improvement. We instituted the following multidisciplinary therapies including, not limited to physical, occupational, respiratory, speech, nutritional services, prosthetics and orthotics. Given her complex medical condition and risks for more complications rehabilitation services cannot be provided at a low level of care such as jail facility. PLAN: 1. Admit to [facility] for inpatient therapy to include the following disciplines; A. Physical therapy to improve gait, all transfer skills and bed mobility to a modified independent level. B. Occupational therapy to improve activities of daily living. C. Case management to help with discharge planning and placement options. D. Nutrition to assist with nutritional needs. E. Rehabilitation nursing to assist in monitoring the patient's underlying medical condition and to assist with any type of bowel or bladder management. 2. The patient's current medications and Medicare will be continued. 3. Placed on standard fall precautions. 4. The patient's stay is approximately 7-10 days. 5. We discussed this patient during care team staff meeting this week. Continuation of appropriate home medications and I will discuss her case today with her care team. TRANSINT:[id number] Voice Confirmation ID: [id number] DOCUMENT ID: [id number] KANNAN notes whether there has been none or any medical/functional change since admission: HISTORY AND PHYSICAL [id number] POSTLEWATE,KAMERON - No change since preadmission screen. KANNAN attests patient continues to be appropriate for IRF: - Continues to be appropriate. GEORGE PRITCHETT MD at 1900 CC: [id number] DICTATION DATE: 10/02/20 09 YARD JACKER: 10/02/20 1112 ADM IN [facility] [address] [place] [address]
[2020-10-10 21:49] VITALS: BP 148/49
[2020-10-11 07:49] LABS: BASOPHILS 0.2 % (0-2); IMMATURE GRANULOCYTES 0.4 % (0-5); LYMPHOCYTE ABS# 2.34 10x3/uL (1.18-3.74); LYMPHOCYTES 13.9 % (15-50); MCH 32.8 pg (26.0-34.0); MCHC 34.2 g/dL (31.0-37.0); MEAN PLATELET VOLUME 9.4 fL (7.4-10.4); MONOCYTES 9.6 % (2-11); NEUTROPHIL ABS# 12.61 10x3/uL (1.56-6.13); NEUTROPHILS 74.9 % (40-80); RBC 3.96 10x6/uL (4.00-5.40); WBC 16.8 10x3/uL (4.8-10.8)
[2020-10-11 07:54] LABS: PLATELET COUNT 400 10x3/uL (130-400)
[2020-10-11 08:00] LABS: ANION GAP 15.1 mmol/L (8-16); CALCIUM 9.5 mg/dL (8.5-10.1); CARBON DIOXIDE 26.9 mmol/L (21.0-32.0); CREATININE - SERUM 1.1 mg/dL (0.6-1.3)
[2020-10-11 08:20] VITALS: BP 143/65
--- NOTE | 2020-10-11 09:15 | NUR ---
SHE IS C/O LOWER BACK PAIN, DR. YARELY LOPEZ, NEW ORDERS FOR A PATCH. SHE HAS BRUISING TO THE INNER AND OUTER THIGH. THE CALL LIGHT IS WITHIN REACH AND THE BED ALARM IS ON.
--- NOTE | 2020-10-11 13:25 | NUR ---
NUTRITION FOLLOW UP: COMMENTS: Patient asleep in bed during visit. No family members in the room. Did not distrub patient. Patient present with okay PO intake. DIET: Regular Diet SUPPLEMENT: Ensure with Meals PO INTAKE: 47% avg for last 9 meals WEIGHT: 10/04-116 lbs BM: x 1 on 10/10 SIG MEDS: K Gluconate, Niacin, MVI/Iron/Zinc, Fish Oil, Vit D, OSCAL D, Lipitor, Vit C, Protonix, Probiotic SIG LABS: Na-132(L), Cl-94(L), BUN-25(H) RECOMMENDATIONS: Continue Regular diet as tolerated Continue Ensure with meals Encourage PO intake Assistance with meals if needed RD to follow up within 7 days
[2020-10-11 18:32] LABS: BILIRUBIN NEGATIVE (NEGATIVE); KETONE NEGATIVE (NEGATIVE); NITRITE NEGATIVE (NEGATIVE); UROBILINOGEN NORMAL mg/dL (< 2)
[2020-10-11 20:24] VITALS: BP 146/67
--- NOTE | 2020-10-11 20:25 | NUR ---
PATIENT RECEIVED LAYING IN LOW BED. ASSESSMENT & VITAL SIGNS DONE. NO C/O PAIN OR DISTRESS. ALARM ON. BEDSIDE TABLE & CALL LIGHT WITHIN REACH. WILL CONTINUE TO MONITOR.
--- NOTE | 2020-10-12 00:15 | NUR ---
I have reviewed this patient and I concur with the Shift Assessment completed by the Licensed Practical Nurse today this shift.
--- NOTE | 2020-10-12 01:37 | NUR ---
PATIENT ON ROUNDS NEEDING HELP. CALL LIGHT WITHIN REACH. PATIENT 2 PERSON ASSIST INTO & OUT OF WHEELCHAIR. ON & OFF COMMODE. PATIENT HAD VOID ONLY. PATIENT C/O BACK, BUTT PAIN WHILE ON COMMODE. PAIN BETTER WHEN FLAT IN LOW BED. ALARM ON. CALL LIGHT & BEDSIDE TABLE WITHIN REACH. WILL CONTINUE TO MONITOR.
--- NOTE | 2020-10-12 03:08 | NUR ---
PATIENT USED CALL LIGHT FOR ASSIST. PATIENT MOD ASSIST INTO & OUT OF WHEELCHAIR. ON & OFF COMMODE. VOID ONLY. RETURNED TO LOW BED. ALAMR ON. CALL LIGHT & BEDSIDE TABLE WITHIN REACH. WILL CONTINUE TO MONITOR.
--- NOTE | 2020-10-12 05:05 | NUR ---
PATIENT USED CALL LIGHT. THIS NURSE & TOP INVENTORY CONTROL EXECUTIVE WENT TO ROOM. PATIENT CONFUSED WANTING TO GET UP. PATIENT INFORMED IT IS TOO EARLY. PATIENT TOOK [place] & WAS CONTENT. BED LOW. ALARM ON. CALL LIGHT & BEDSIDE TABLE WITHIN REACH. WILL CONTINUE TO MONITOR.
--- NOTE | 2020-10-12 07:51 | NUR ---
PT RESTING IN BED WITH EYES OPEN CALL LIGHT IN REACH NO PROBLEMS WILL MONITER
[2020-10-12 08:55] VITALS: BP 141/55
--- NOTE | 2020-10-12 17:50 | NUR ---
PT RESTING IN BED WITH EYES OPEN CALL LIGHT IN REACH NO PROBLEMS WILL MONITER
[2020-10-12 19:00] VITALS: BP 157/61
--- NOTE | 2020-10-12 22:28 | NUR ---
PATIENT RECEIVED SITTING UP IN BED. VERY CONFUSED. ASSESSMENT & VITAL SIGNS DONE. ALARM ON. PATIENT TAKEN TO BATHROOM. VOID & BM. RETURNED TO LOW BED. ALARM ON. CALL LIGHT & BEDSIDE TABLE WITHIN REACH. WILL CONTINUE TO MONITOR.
--- NOTE | 2020-10-13 01:40 | NUR ---
PATIENT ALARM SOUNDING. PATIENT CONFUSED & WAS SITTING ON SIDE OF BED. PATIENT TURNED & WENT BACK INTO BED. CALL LIGHT & BEDSIDE TABLE WITHIN REACH. BED LOW. ALARM ON. WILL CONTINUE TO MONITOR.
--- NOTE | 2020-10-13 03:26 | NUR ---
I have reviewed this patient and I concur with the Shift Assessment completed by the Licensed Practical Nurse today this shift.
--- NOTE | 2020-10-13 04:56 | NUR ---
PATIENT TAKEN TO SHOWER. PATIENT WASHED FRONT & THIS NURSE DID BACK. PATIENT REFUSED TO WASH HAIR. LINENS CHANGED. PATIENT DRIED OFF. CLEAN CLOTHES ON. PATIENT RETURNED TO LOW BED. ALARM ON. BEDSIDE TABLE & CALL LIGHT WITHIN REACH. WILL CONTINUE TO MONITOR.
--- NOTE | 2020-10-13 08:30 | NUR ---
PT VERY CONFUSED MOANING SAYING HER BOTTOM HURTS. SHE IS SAYING HER DAUGHTER IS HERE AND HOLLERING HER NAME WILL GIVE PAIN MEDS ORDERED AND CONTINUE TO REDIRECT PT CALL LIGHT IN REACH ALARM ON BED WILL MONITER
[2020-10-13 10:39] VITALS: BP 158/69
[2020-10-13 15:12] LABS: BILIRUBIN NEGATIVE (NEGATIVE); KETONE NEGATIVE (NEGATIVE); NITRITE NEGATIVE (NEGATIVE); UROBILINOGEN NORMAL mg/dL (< 2)
--- NOTE | 2020-10-13 17:51 | NUR ---
PT EATING IN BED STILL CONFUSED ABT STARTED PER DR ORDER CONSTANT REORIENTATION WILL MONITER ALARM HACK DRIVER LIGHT IN REACH
[2020-10-13 19:00] VITALS: BP 119/58
--- NOTE | 2020-10-13 19:51 | NUR ---
PATIENT RECEIVED SITTING UP IN BED. ASSESSMENT & VITAL SIGNS DONE. BRIEF TAKEN OFF. NEW PADS PLACED UNDER BUTTOCKS. BED LOW. ALARM ON. CALL LIGHT WITHIN REACH. WILL CONTINUE TO MONITR.
--- NOTE | 2020-10-14 03:18 | NUR ---
PATIENT AWAKE LAYING IN BED. ALARM ON. BED LOW. NO C/O PAIM OR DISTRESS. CALL LIGHT IN PATIENT HANDS. EMERGENCY CONTACT CALL WENT TO VOICE MAIL. LEFT MRS. SANDOVAL A MESSAGE TO CALL THIS NUMBER FOR MORE INFORMATION. WILL CONTINUE TO MONITOR.
--- NOTE | 2020-10-14 03:27 | NUR ---
PATIENT ALARM SOUNDING. THIS NURSE & TECH WENT IN THE ROOM. PATIENT STANDING UP & REACHING TO TURN OFF ALARM. PATIENT TOILETED & RETURNED TO LOW BED. VOID ONLY. CALL LIGHT WITHIN REACH. WILL CONTINUE TO MONITOR.
[2020-10-14 08:17] LABS: BASOPHILS 0.1 % (0-2); EOSINOPHILS 0.1 % (0-7); HEMATOCRIT 38.3 % (36.0-48.0); HEMOGLOBIN 12.8 g/dL (12-16); IMMATURE GRANULOCYTES 0.3 % (0-5); LYMPHOCYTE ABS# 1.58 10x3/uL (1.18-3.74); LYMPHOCYTES 10.7 % (15-50); MCHC 33.4 g/dL (31.0-37.0); MCV 95.8 fL (80.0-100.0); MEAN PLATELET VOLUME 9.1 fL (7.4-10.4); MONOCYTES 9.9 % (2-11); NEUTROPHIL ABS# 11.63 10x3/uL (1.56-6.13); NEUTROPHILS 78.9 % (40-80); PLATELET COUNT 417 10x3/uL (130-400); RDW 12.1 % (11.5-14.5); WBC 14.7 10x3/uL (4.8-10.8)
[2020-10-14 08:19] LABS: ANION GAP 16.3 mmol/L (8-16); CARBON DIOXIDE 25.6 mmol/L (21.0-32.0); POTASSIUM - SERUM 3.9 mmol/L (3.5-5.1)
[2020-10-14 08:24] VITALS: BP 188/82
--- NOTE | 2020-10-14 09:31 | NUR ---
SHE IS CONFUSED, UP AND DOWN FROM THE BED TO THE WHEELCHAIR SETTING OFF THE ALARM. SHE HAS BRUISING TO THE RIGHT HIP AND INNER THIGH. SHE IS SHAKING, SHE SAID HER BROTHER DID THAT. SHE IS BACK IN BED, THE CALL LIGHT IS WITHIN REACH AND THE BED ALARM IS ON.
--- NOTE | 2020-10-14 09:57 | NUR ---
REFERAL HAS BEEN FAXED TO THE [facility] PER PATIENT AND DAUGHTER REQUEST FOR POSSIBLE ADMISSION IN AM. WILL CONTINUE TO FOLLOW WITH PATIENT.
--- NOTE | 2020-10-14 14:04 | NUR ---
PATIENT HAS BEEN ACCEPTED TO THE [facility] AND WILL DISCHARGE THERE ON 10/15/20 VIA FACILITY VAN. WILL CONTINUE TO FOLLOW WITH PATIENT.
[2020-10-14 19:33] VITALS: BP 166/70
--- NOTE | 2020-10-15 02:00 | NUR ---
PT IS RESTING WITH EYES CLOSED. RESPIRATIONS ARE EVEN AND UNLABORED. HER BED IS LOW, BED ALARM ON AND SIDE RAILS UP X 3. CALL LIGHT IS WITHIN REACH.
[2020-10-15 07:07] LABS: BASOPHILS 0.2 % (0-2); EOSINOPHILS 0.7 % (0-7); HEMATOCRIT 35.1 % (36.0-48.0); HEMOGLOBIN 11.8 g/dL (12-16); IMMATURE GRANULOCYTES 0.3 % (0-5); LYMPHOCYTES 15.9 % (15-50); MCH 32.5 pg (26.0-34.0); MCHC 33.6 g/dL (31.0-37.0); MCV 96.7 fL (80.0-100.0); MONOCYTES 11.1 % (2-11); NEUTROPHIL ABS# 8.58 10x3/uL (1.56-6.13); NEUTROPHILS 71.8 % (40-80); PLATELET COUNT 354 10x3/uL (130-400); RBC 3.63 10x6/uL (4.00-5.40); RDW 12.2 % (11.5-14.5); WBC 11.9 10x3/uL (4.8-10.8)
[2020-10-15 07:40] VITALS: BP 171/78
--- NOTE | 2020-10-15 09:38 | NUR ---
SHE IS STILL SLEEPING. SHE IS DISCHARING TO THE [facility] TODAY. THE CALL LIGHT IS WITHIN REACH AND THE BED ALARM IS ON.
--- NOTE | 2020-10-15 09:50 | NUR ---
CALLED REPORT TO AZEEM JANG AT THE [facility] [employer]. SHE IS LEAVING WEARING HER BRACE TO HER RIGHT WRIST. SHE HAD HE MORNING MEDICATIONS, HAS A PATCH TO HER LOWER BACK. SHE IS TAKEN OUT VIA WHEELCHAIR BY THE [employer] SOCIAL WELFARE ADMINISTRATOR.
[2020-10-15] MEDS ORDERED: LEVOFLOXACIN500 MG PO (10:32)
--- NOTE | 2020-10-15 11:44 | NUR ---
PATIENT HAS DISCHARGED TO THE [facility]. TARSHA SIGNED, IMM SERVED AND EXPLAINED, ONE SENT WITH PATIENT AND ONE FILED IN CHART.APPOINTMENTS WITH DR. Lynch and DR. DUMONT WILL BE MADE AT TIME OF DISCHARGE FROM F[facility]ILTY. DISCHARGE INSTRUCTIONS HAVE BEEN FAXED TO SNF, PCP AND REVIEWED WITH PATIENT.
== END 2020-10-15 12:59 | DRG 561 ==
LOC: D.REHAB 17:05
PROVIDERS: ADMIT Emergency Medicine; ATTEND Emergency Medicine
DX: S32.509D Unspecified fracture of unspecified pubis, subsequent encounter for fracture with routine healing (principal); W19.XXXD Unspecified fall, subsequent encounter; E78.5 Hyperlipidemia, unspecified; I10 Essential (primary) hypertension; M19.90 Unspecified osteoarthritis, unspecified site; Z91.81 History of falling; R41.0 Disorientation, unspecified; S52.501D Unspecified fracture of the lower end of right radius, subsequent encounter for closed fracture with routine healing